=== PATIENT | male | born 1975 | race African-American/Black ===

== ENCOUNTER 2021-04-22 15:15 | Inpatient (IN) | payer OTHER ==
[2021-04-22 16:03] VITALS: BMI 19.2
[2021-04-22] MEDS ORDERED: BISMUTH SUBSALICYLATE 524 MG/30 ML PO PRN (17:40)
[2021-04-22] MEDS ORDERED: IBUPROFEN 400 MG TABLET (FP) PO PRN (17:40)
[2021-04-22] MEDS ORDERED: ACETAMINOPHEN 325 MG TABLET (FP) PO PRN ×2 (17:40)
[2021-04-22] MEDS ORDERED: MAG HYDROX/AL HYDROX/SIMETH 30 ML UNIT-DOSE CUP PO PRN (17:40)
[2021-04-22] MEDS ORDERED: MAGNESIUM HYDROX 2400MG/30ML ORAL SUSPENSION 30 ML CUP PO PRN (17:40)
[2021-04-22] MEDS ORDERED: METHOCARBAMOL 500 MG TABLET PO PRN (17:40)
[2021-04-22] MEDS ORDERED: NICOTINE POLACRILEX 2 MG GUM BUC PRN (17:40)
[2021-04-22] MEDS ORDERED: hydrOXYzine PAMOATE 25 MG CAPSULE (FP) PO PRN (17:40)
[2021-04-22] MEDS ORDERED: MENTHOL/PHENOL 1 EACH UD MM PRN (17:40)
[2021-04-22] MEDS ORDERED: MAGNESIUM CITRATE 300 ML BOTTLE PO PRN (17:40)
[2021-04-22] MEDS ORDERED: ONDANSETRON *ODT* 4 MG TABLET SL PRN (17:40)
[2021-04-22] MEDS ORDERED: diazePAM 5 MG TABLET PO PRN (17:42)
[2021-04-22] MEDS: diazePAM 5 MG TABLET PO SCH ×2 (19:18→22:49)
[2021-04-22] MEDS ORDERED: THIAMINE HCL 100 MG TABLET (FP) PO SCH (22:00)
[2021-04-22] MEDS ORDERED: MELATONIN 5 MG TABLETS PO SCH (22:00)
[2021-04-23] MEDS: diazePAM 5 MG TABLET PO SCH ×2 (05:48→10:55)
[2021-04-23 09:08] VITALS: TEMP 96.9
[2021-04-23] MEDS ORDERED: PRENATAL VITAMINS W/ FOLIC ACID TABLET (FP) PO SCH (10:00)
[2021-04-23 11:23] LABS: HEMATOCRIT 40.7 % (35.4-49); HEMOGLOBIN 13.4 GM/dL (11.7-16.9); MCH 31.5 pg (25.7-33.7); MEAN CELL VOLUME 95.4 fl (80-96); PLATELET COUNT 119 K/MM3 (134-434); RBC 4.27 M/mm3 (4.00-5.60); RDW 15.3 % (11.9-15.9); WHITE BLOOD COUNT 4.6 K/mm3 (4.0-10.0)
[2021-04-23 12:02] LABS: ALBUMIN 3.6 g/dl (3.4-5.0)
[2021-04-23 12:04] LABS: CREATININE 0.6 mg/dL (0.55-1.3)
[2021-04-23 12:06] LABS: BILIRUBIN,TOTAL 0.8 mg/dL (0.2-1); TOT PROT 6.7 g/dl (6.4-8.2)
[2021-04-23 13:45] VITALS: BP 146/81; PULSE 72
[2021-04-24] MEDS ORDERED: diazePAM 5 MG TABLET PO SCH (06:00)
[2021-04-25] MEDS ORDERED: diazePAM 5 MG TABLET PO SCH (06:00)
[2021-04-26] MEDS ORDERED: diazePAM 5 MG TABLET PO ONE (06:00)
== END 2021-04-23 14:05 | disposition left against medical advice (07) | DRG 770 ==
LOC: YASAS 15:15 → Y3N 17:44
PROVIDERS: ADMIT Allergy & Immunology; ATTEND Allergy & Immunology
PROC: HZ2ZZZZ Detoxification Services for Substance Abuse Treatment (ICD-10-PCS; principal; 2021-04-22)
DX: F10.230 Alcohol dependence with withdrawal, uncomplicated (principal); F12.20 Cannabis dependence, uncomplicated; F17.210 Nicotine dependence, cigarettes, uncomplicated; J44.9 Chronic obstructive pulmonary disease, unspecified; J45.909 Unspecified asthma, uncomplicated
CPT/HCPCS: 36415; 80053; 85027; 86780; C9803; U0003; U0005